=== PATIENT | male | born 1985 | race Caucasian/White ===

== ENCOUNTER 2017-05-07 11:03 | Emergency (ER) | payer SELFPAY ==
[2017-05-07 11:38] VITALS: BP 152/74; PULSE 74; RESP 18; TEMP 98.2; O2SAT 99
[2017-05-07] MEDS ORDERED: ZOFR4TAB PO (12:27)
[2017-05-07] MEDS ORDERED: BENZ100 PO (12:27)
--- NOTE | 2017-05-07 12:31 | PD ---
HPI Chief Complaint: Cold / Flu Symptoms Time Seen by Provider: 11:57 Travel History International Travel<30 days: No Contact w/Intl Traveler<30days: No Traveled to known affect area: No History of Present Illness HPI 31-year-old male presents to the emergency room for evaluation of cold and flu symptoms that started about 4 days ago. Symptoms started with nonproductive cough, congestion, and fever. Denies significant sore throat. Maximum temperature was 101. He has been taking [id number] medications without relief in symptoms. He has also had nausea, nonbloody, nonbilious vomiting, and diarrhea over the past 2 days. Cannot quantify but states about 5 times per day. Denies any abdominal pain, chest pain, or shortness of breath. Patient reports chronic back pain and anxiety. [facility] Social History Tobacco Use: Yes Allergies-Medications (Allergen,Severity, Reaction): Coded Allergies: No Known Allergies (Unverified , 05/07/17) Reported Meds & Prescriptions Reported Meds & Active Scripts Active No Active Prescriptions or Reported Medications Review of Systems Except as stated in HPI: all other systems reviewed are Neg Physical Exam Narrative GENERAL: Well-nourished, well-developed male in no acute distress. Afebrile. Ambulatory. SKIN: Focused skin assessment warm/dry. HEAD: Normocephalic. EYES: No scleral icterus. No injection or drainage. ENT: Mucosa pink and moist. No erythema or exudates. No uvular edema. No uvular , palatal, or tonsillar deviation. Airway patent. Nasal turbinates appear normal without nasal blood, purulent drainage or septal hematoma. EARS: Bilateral pinnae and external canals appear within normal limits. Bilateral tympanic membranes without erythema, dullness or perforation. NECK: Supple, trachea midline. No JVD or lymphadenopathy. CARDIOVASCULAR: Regular rate and rhythm without murmurs, gallops, or rubs. RESPIRATORY: Breath sounds equal bilaterally. No accessory muscle use. No crackles, rales, wheezes, or rhonchi. GASTROINTESTINAL: Abdomen soft, non-tender, nondistended. Data Data Last Documented VS Vital Signs Date Time Temp Pulse Resp B/P (MAP) Pulse Ox O2 Delivery O2 Flow Rate FiO2 05/07/17 11:38 98.2 74 18 152/74 (100) 99 Orders Orders Influenzae A/B Antigen (05/07/17 11:39) [facility] Medical Decision Making Medical Screen Exam Complete: Yes Emergency Medical Condition: Yes Medical Record Reviewed: Yes Differential Diagnosis influenza, pneumonia, URI, bronchitis Narrative Course 31-year-old male presents to the emergency room for evaluation of cold and flu symptoms for the past 4 days. Symptoms include cough, congestion, fever of 101 , and malaise. Patient has had several episodes of nonbloody, nonbilious emesis with associated diarrhea. He is afebrile and well-appearing in the emergency room. Vital signs stable. Resting comfortably in bed. Lung sounds clear and equal bilaterally. Abdomen soft, nontender. Influenza is negative. This is viral syndrome. Patient discharged with Zofran and Tessalon Perles. Told to follow-up with PCP return for worsening symptoms. He understands and agrees to plan. Diagnosis Primary Impression: Viral syndrome Referrals: Primary Care Physician Additional Instructions: Medications as directed. Follow-up with PCP. Return for worsening symptoms. Med/Other Pt SpecificInfo: Prescription(s) given Scripts Benzonatate (Tessalon Perles) 100 Mg Cap 100 MG PO TID Y for COUGH, #15 CAP 0 Refills Prov: Blanco Candelario MD 05/07/17 Ondansetron (Zofran) 4 Mg Tab 4 MG PO Q6HR Y for NAUSEA OR VOMITING, #12 TAB 0 Refills Prov: Blanco Candelario MD 05/07/17 Disposition: 01 DISCHARGE HOME Condition: Stable Teresa Ceballos May 07, 2017 12:31
== END 2017-05-07 12:51 | disposition home or self-care (01) ==
LOC: NEPK 11:03
DX: B34.9 Viral infection, unspecified (principal); Z72.0 Tobacco use
CPT/HCPCS: 87804; 99283